=== PATIENT | male | born 1995 | race Caucasian/White ===

== ENCOUNTER 2016-07-07 11:25 | Emergency (ER) | payer OTHER ==
[~2016-07-07] VITALS: Ht 175.3 cm; Wt 81.6 kg
[2016-07-07 11:38] VITALS: BP 144/82
--- NOTE | 2016-07-07 12:09 | NUR ---
Patient to OF. Dr. Garvin evaluating patient.
--- NOTE | 2016-07-07 12:11 | NUR ---
PATIENT PRESENTS TO ED WITH COUGH X10 DAYS WITH FEVER . DENIES N/V/D; SKIN IS PINK/WARM/DRY; AAOX4 WITH EVEN AND STEADY GAIT; LUNGS CLEAR BL; HR EVEN AND REGULAR; PT DENIES ANY FEVER, CP, SOB AT THIS TIME; PATIENT STATES PAIN OF 0/10 AT THIS TIME; VSS; PATIENT POSITIONED FOR COMFORT; HOB ELEVATED; BEDRAILS UP X2; BED DOWN.ER MD EVALUATING PT.
[2016-07-07 12:31] VITALS: BP 144/82
--- NOTE | 2016-07-07 12:32 | NUR ---
Patient discharged with v/s stable. Written and verbal after care instructions given and explained. Patient verbalized understanding. Ambulatory with steady gait. All questions addressed prior to discharge. Advised to follow up with PMD.
== END 2016-07-07 12:32 | disposition home or self-care (01) ==
LOC: MED 11:25
DX: J11.1 Influenza due to unidentified influenza virus with other respiratory manifestations (principal); F17.200 Nicotine dependence, unspecified, uncomplicated

== ENCOUNTER 2017-03-01 12:53 | Emergency (ER) | payer OTHER ==
[~2017-03-01] VITALS: Ht 175.3 cm; Wt 90.7 kg
[2017-03-01 13:07] VITALS: BP 143/77
[2017-03-01 14:42] VITALS: BP 143/77
== END 2017-03-01 14:20 | disposition home or self-care (01) ==
LOC: MED 12:53
DX: S39.012A Strain of muscle, fascia and tendon of lower back, initial encounter (principal); S16.1XXA Strain of muscle, fascia and tendon at neck level, initial encounter; V43.52XA Car driver injured in collision with other type car in traffic accident, initial encounter; Y93.19 Activity, other involving water and watercraft; Y92.488 Other paved roadways as the place of occurrence of the external cause; Y99.8 Other external cause status

== ENCOUNTER 2020-05-15 10:43 | Emergency (ER) | payer OTHER ==
[~2020-05-15] VITALS: Ht 175.3 cm; Wt 103.9 kg
[2020-05-15 10:52] VITALS: BP 143/94
== END 2020-05-15 12:57 | disposition home or self-care (01) ==
LOC: MED 10:43
DX: H60.92 Unspecified otitis externa, left ear (principal)
CPT/HCPCS: 99281

== ENCOUNTER 2021-02-10 12:26 | Emergency (ER) | payer OTHER ==
[~2021-02-10] VITALS: Ht 175.3 cm; Wt 99.8 kg
[2021-02-10 12:35] VITALS: BP 145/94
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
--- NOTE | 2021-02-10 13:34 | NUR ---
MD Vasquez evaluating pt at chairside
[2021-02-10] MEDS: HYDROcodone/APAP 5/325 MG 1 TAB TAB PO ONE (14:04)
[2021-02-10] MEDS ORDERED: TOMOMETER 1 DEV DEV MC ONE (14:04)
[2021-02-10] MEDS: FLUORESCEIN OPTH STRIP 1 MG OP ONE (14:25)
[2021-02-10] MEDS: TETRACAINE HCL/PF 0.5% OPTH 4 ML BTL OP ONE (14:25)
[2021-02-10] MEDS: BACITRACIN OINT 500 UNITS/GM PKT TP ONE (14:25)
[2021-02-10] MEDS ORDERED: ACET-9527 PO (15:06)
[2021-02-10] MEDS ORDERED: ONDA-24 SL (15:06)
[2021-02-10 15:18] VITALS: BP 132/80
--- NOTE | 2021-02-10 15:19 | NUR ---
Patient discharged with v/s stable. Written and verbal after care instructions given and explained. Patient alert, oriented and verbalized understanding of instructions. Ambulatory with steady gait. All questions addressed prior to discharge. ID band removed. Patient advised to follow up with PMD. Rx of Hydrocodone 5-325 and Zofran was given. Patient educated on indication of medication including possible reaction and side effects. Opportunity to ask questions provided and answered.
== END 2021-02-10 15:19 | disposition home or self-care (01) ==
LOC: MED 12:26
DX: S02.831A Fracture of medial orbital wall, right side, initial encounter for closed fracture (principal); S93.502A Unspecified sprain of left great toe, initial encounter; T14.8XXA Other injury of unspecified body region, initial encounter; H11.32 Conjunctival hemorrhage, left eye; Y04.0XXA Assault by unarmed brawl or fight, initial encounter; Y93.89 Activity, other specified; Y92.89 Other specified places as the place of occurrence of the external cause; Y99.8 Other external cause status
CPT/HCPCS: 70480; 71045; 73660; 99284